=== PATIENT | male | born 1970 | race Two or more races ===

== ENCOUNTER 2019-03-04 06:01 | Emergency (ER) | payer OTHER ==
[~2019-03-04] VITALS: Ht 182.9 cm; Wt 99.8 kg
== END 2019-03-04 14:13 | disposition home or self-care (01) ==
LOC: ER 06:01
DX: L02.211 Cutaneous abscess of abdominal wall (principal)

== ENCOUNTER → 2019-03-12 | Day surgery (SDC) | payer OTHER ==
[~2019-03-12] MED LIST: AMOX1TAB5 PO
== END | disposition home or self-care (01) ==
LOC: CIR.AMB 05:59
DX: L02.216 Cutaneous abscess of umbilicus (principal)

== ENCOUNTER 2021-01-01 06:53 | Emergency (ER) | payer OTHER ==
[~2021-01-01] VITALS: Ht 182.9 cm; Wt 99.8 kg
== END 2021-01-01 10:16 | disposition home or self-care (01) ==
LOC: ER 06:53
DX: G89.11 Acute pain due to trauma (principal); M54.2 Cervicalgia; M25.512 Pain in left shoulder; S16.1XXS Strain of muscle, fascia and tendon at neck level, sequela; S46.812S Strain of other muscles, fascia and tendons at shoulder and upper arm level, left arm, sequela; W01.198S Fall on same level from slipping, tripping and stumbling with subsequent striking against other object, sequela; W10.8XXS Fall (on) (from) other stairs and steps, sequela